=== PATIENT | female | born 1955 | race Caucasian/White ===

== ENCOUNTER → 2017-02-21 | Outpatient (CLI) | payer OTHER ==
--- NOTE | 2017-02-21 09:50 | RAD ---
HISTORY: Left upper quadrant pain Study: Acute abdominal series Comparison: None Findings: Lung volumes are reduced with bronchovascular crowding. There is cardiomegaly noted and suggestion o f central pulmonary vascular congestion. There is atelectasis at the lung bases. Flat plate and upright evaluation of the abdomen demonstrates a normal bowel gas pattern. No gross f ree intraperitoneal air. No pathological soft tissue mass or calcification can be observed. The bon y structures are grossly intact. Cholecystectomy clips are noted. IMPRESSION: 1. No evidence of acute abdominal pathology. 2. Low lung volumes with possible mild vascular congestion, correlate clinically. Reported By:
== END ==
LOC: RAD 08:52
PROVIDERS: ATTEND Obstetrics & Gynecology Obstetrics
DX: R10.12 Left upper quadrant pain (principal)
CPT/HCPCS: 74022

== ENCOUNTER → 2017-10-17 | Outpatient (CLI) | payer OTHER ==
--- NOTE | 2017-10-17 20:21 | CT ---
HISTORY: Left lower quadrant pain with rebound tenderness. Study: CT abdomen and pelvis without contrast Comparison: None. Technique: Multiple axial images of the abdomen and pelvis were obtained from the lung bases to the pubic symphy sis without the administration of IV contrast. Dose reduction techniques including Automated Exposur e Control (AEC) and adjustment of mA and kV were utilized. Findings: Study limited secondary to lack of IV contrast. The visualized portions of the lung bases are unremarkable. Bilateral nonobstructing nephroliths, the largest measuring 4 mm within the left interpolar kidney and 3 mm within the right interpolar kidney . The liver, spleen, pancreas, and adrenal glands are unremarkable in their CT appearance. The gallb ladder is surgically absent. Marked soft tissue stranding is seen about multiple sigmoid diverticulu m with associated mucosal thickening and non loculated free fluid. No obvious free air to suggest per foration or focal fluid collection to suggest abscess formation. Remaining large and small bowel appe ar normal. The uterus and ovaries appear surgically absent. The bladder appears normal. Small fat con taining umbilical hernia. Degenerative changes of the spine. No aggressive osseous lesions. Vascular calcifications without evidence of aneurysmal dilatation. IMPRESSION: Acute sigmoid diverticulitis without evidence to suggest perforation or abscess formatio n. Recommend direct visualization to exclude neoplasm after patient has recovered from current episod e. Reported By:
== END ==
LOC: RAD 17:16
PROVIDERS: ATTEND Obstetrics & Gynecology Obstetrics
DX: R10.32 Left lower quadrant pain (principal); R10.824 Left lower quadrant rebound abdominal tenderness; K57.30 Diverticulosis of large intestine without perforation or abscess without bleeding
CPT/HCPCS: 74176

== ENCOUNTER 2017-10-24 08:07 | Inpatient (IN) | payer OTHER ==
[2017-10-24 08:16] VITALS: BMI 44.8
--- NOTE | 2017-10-24 08:30 | DR.GENAD ---
HPI - PCP Primary Care Physician: [email or web address] - HPI Comment HPI Comment: WORSE TODAY. NO FEVER. ON MED FOR DIVERTICULITIS BUT PAIN INCREASING. - Complaint/Symptoms Chief Complaint Doctors Comments: LEFT LOWER ABDOMINAL PAIN TIMES 2 WEEKS. Chief Complaint:: "pain in left side, for two weeks from diverticulitis" - Nurses notes reviewed Nurses Notes Review: Yes - Source History Provided: Patient - Mode of Arrival Mode of Arrival: Ambulatory - Timing Onset of Chief Complaint: 10/14/17 Came on: Suddenly - Duration Duration: Constant Duration: Days - Severity Severity: Moderate PMH - PMH Past Medical History: Yes Past Medical History: Diabetes, Hypertension Past Surgical History: Yes Surgical History: Cholecystectomy, Hysterectomy - Family History History of Family Medical Conditions: Yes Family Medical History: Diabetes Mellitus, [place], Hypertension - Social History Does patient currently use any type of tobacco product: No Have you used tobacco products in the last 12 months: No Type of Tobacco Use: None Does any household member use tobacco: No Alcohol Use: None Do you use any recreational Drugs:: No Lives With: Family Lives Where: Home - infectious screening In the last 2 months have you had wt loss of >10#?: NO Have you had fever, night sweats or hemotysis?: No Have you traveled outside the country in the last 6 months?: No Isolation: Standard ROS - Review of Systems Constitutional: Weakness, Fatigue Eyes: No Symptoms Reported. negative: Eye Pain, Discharge ENTM: No Symptoms Reported. negative: Ear Pain, Nose Discharge, Nose Congestion , Throat Pain Respiratoy: negative: Productive Cough, Non-Productive Cough, Short of Breath, Wheezing, Hemoptysis Cardiovascular: No Symptoms Reported. negative: Chest Pain Gastrointestinal/Abdominal: Abdominal Pain, Nausea Genitourinary: No Symptoms Reported, Pain. negative: Bleeding Neurological: Weakness, Dizziness. negative: Headache Musculoskeletal: Muscle Pain Integumentary: No Symptoms Reported Hematologic/Lymphatic: No Symptoms Reported Endocrine: No Symptoms Reported All Other Systems: Reviewed and Negative PE - Vital Signs Vitals: Temperature 97.6 F Pulse Rate 100 Respiratory Rate 18 Blood Pressure 183/78 O2 Sat by Pulse Oximetry 97 - General Limitations: No Limitations General Appearance: Alert - Head Head Exam: Normal Inspection - Eyes Eye exam: Normal Appearance - ENT ENT Exam: Normal External Ear Exam External Ear Exam: Normal External Inspection TM/Canal Exam: Bilateral Normal Mouth Exam: Normal Inspection Throat Exam: Normal Inspection - Neck Neck Exam: Trachea Midline - Chest Chest Inspection: Symmetric Chest Wall Rise - Respiratory Respiratory Exam: Normal Lung Sounds Bilat Respiratory Exam: Bilateral Clear to Auscultation - Cardiovascular Cardiovascular Exam: Regular Rate, Normal Rhythm, Normal Heart Sounds - Abdominal Exam Abdominal Exam: Normal Bowel Sounds, Soft, Tenderness Abdominal Tenderness: LUQ, LLQ, Moderate - Extremities Extremities Exam: Normal Inspection - Back Back Exam: Normal Inspection - Neurologic Neurological Exam: Alert, Oriented X3 - Psychiatric Psychiatric Exam: Normal Affect, Normal Mood - Skin Skin Exam: Normal Color MDM - Additional Information Additional Information Obtained From: Family - Differential Diagnosis Differential Diagnosis: ABDOMINAL PAIN, ACUTE DIVERTICULITIS Course - Treatment Treatment: SEE ORDERS. - Consultation Consultation Comments: SEEN IN ED BY DR. VELIZ AND ADMITTED TO HOSPITAL BY HIM. - Education/Counseling Education/Counseling: Patient, Education Educated On: Diagnosis ROR - Labs Reviewed Laboratory Results Reviewed?: Yes Result Diagrams: 10/26/17 03:00 10/26/17 03:00 Laboratory: WBC 12.2 X10^3/uL (3.6-10.0) H 10/24/17 08:55 RBC 4.46 X10^6/uL (3.5-5.4) 10/24/17 08:55 Hgb 13.2 g/dL (12.0-16.0) 10/24/17 08:55 Hct 38.6 % (36.0-47.0) 10/24/17 08:55 MCV 86.5 fL (80.0-100.0) 10/24/17 08:55 MCH 29.6 pg (27.0-34.0) 10/24/17 08:55 MCHC 34.2 g/dL (33.0-35.0) 10/24/17 08:55 RDW 14.9 % (11.6-16.5) 10/24/17 08:55 Plt Count 260 X10^3/uL (150.0-450.0) 10/24/17 08:55 MPV 7.8 fL (7.4-11.0) 10/24/17 08:55 Neut % 73.7 % (42.0-75.0) 10/24/17 08:55 Lymph % 18.6 % (21.0-51.0) L 10/24/17 08:55 [place] % 5.8 % (0.0-13.0) 10/24/17 08:55 Eos % 1.2 % (0.9-2.9) 10/24/17 08:55 Baso % 0.7 % (0.2-1.0) 10/24/17 08:55 Neut # 9.0 x10^3/uL (2.2-4.8) H 10/24/17 08:55 Lymph # 2.3 X10^3/uL (1.3-2.9) 10/24/17 08:55 [place] # 0.7 x10^3/uL (0.3-0.8) 10/24/17 08:55 Eos # 0.1 x10^3/uL (0.0-0.2) 10/24/17 08:55 Baso # 0.1 X10^3/uL (0.0-0.1) 10/24/17 08:55 Absolute Nucleated RBC 0.0 /100WBC 10/24/17 08:55 Sodium 139 mmol/L (136-145) 10/24/17 08:55 Corrected Sodium 140 mmol/L (136-145) 10/24/17 08:55 Potassium 4.3 mmol/L (3.5-5.1) 10/24/17 08:55 Chloride 100 mmol/L (98-107) 10/24/17 08:55 Carbon Dioxide 28.8 mmol/L (21-32) 10/24/17 08:55 BUN 22 mg/dL (7-18) H 10/24/17 08:55 Creatinine 0.90 mg/dL (0.55-1.02) 10/24/17 08:55 Est GFR (MDRD) Af Amer > 60 (>60) 10/24/17 08:55 Est GFR (MDRD) Non-Af > 60 (>60) 10/24/17 08:55 Glucose 141 mg/dL (65-99) H 10/24/17 08:55 Calcium 9.6 mg/dL (8.5-10.1) 10/24/17 08:55 Corrected Calcium TNP 10/24/17 08:55 Total Bilirubin 0.30 mg/dL (0.2-1.0) 10/24/17 08:55 AST 14 Units/L (15-37) L 10/24/17 08:55 ALT 23 Units/L (12-78) 10/24/17 08:55 Alkaline Phosphatase 73 Units/L (46-116) 10/24/17 08:55 Total Protein 8.1 g/dL (6.4-8.2) 10/24/17 08:55 Albumin 3.5 g/dL (3.4-5.0) 10/24/17 08:55 Globulin 4.6 g/dL (2.5-4.5) H 10/24/17 08:55 Albumin/Globulin Ratio 0.8 Ratio (1.1-2.1) L 10/24/17 08:55 Amylase 39 Units/L (25-115) 10/24/17 08:55 Lipase 167 Units/L (73-393) 10/24/17 08:55 Specimen Type Clean catch urine 10/24/17 08:42 Urine Color Yellow (YELLOW) 10/24/17 08:42 Urine Appearance Clear (CLEAR) 10/24/17 08:42 Urine pH 5.0 (5.0 - 8.0) 10/24/17 08:42 Ur Specific [place] 1.015 (1.000-1.030) 10/24/17 08:42 Urine Protein Negative (NEGATIVE) 10/24/17 08:42 Urine Glucose (UA) Negative (NEGATIVE) 10/24/17 08:42 Urine Ketones Negative (NEGATIVE) 10/24/17 08:42 Urine Occult Blood 1+ (NEGATIVE) 10/24/17 08:42 Urine Nitrite Positive (NEGATIVE) 10/24/17 08:42 Urine Bilirubin Negative (NEGATIVE) 10/24/17 08:42 Urine Urobilinogen Normal (NORMAL) 10/24/17 08:42 Ur Leukocyte Esterase Negative (NEGATIVE) 10/24/17 08:42 Urine RBC Rare /HPF (NEGATIVE) 10/24/17 08:42 Urine WBC 0 - 3 /HPF (NEGATIVE) 10/24/17 08:42 Ur Squamous Epith Cells Many /HPF (NEGATIVE) 10/24/17 08:42 Amorphous Sediment Trace /HPF (NEGATIVE) 10/24/17 08:42 Urine Bacteria 1+ /HPF (NEGATIVE) 10/24/17 08:42 Ur Culture Indicated? No/not indicated 10/24/17 08:42 - XRAY XRAY Interpreted by: Radiologist XRAY Findings: REPORT DISCUSS WITH PATIENT FOR ACUTE ABDOMINAL SERIES. - Diagnosis Discharge Problem: Abdominal pain not caused by trauma, Diverticulitis - Discharge Plan Disposition: ADMITTED INPATIENT Condition: Stable - Follow ups/Referrals - Instructions
[2017-10-24] MEDS ORDERED: MORPHINE SULFATE INJ 4 MG IVP ONE (08:40)
[2017-10-24] MEDS ORDERED: ZOFRAN INJ 4 MG VIAL IVP ONE (08:42)
[2017-10-24] MEDS ORDERED: PEPCID 20 MG IV PREMIX* 20 MG/50 ML BAG IV ONE ×2 (08:42→08:47)
[2017-10-24] MEDS ORDERED: NS 1000 ML 1,000 ML ONE (08:47)
[2017-10-24] MEDS ORDERED: ZOFRAN INJ 4 MG VIAL ONE (08:47)
[2017-10-24] MEDS ORDERED: MORPHINE SULFATE INJ 4 MG ONE (08:48)
[2017-10-24] MEDS ORDERED: NS 1000 ML 1,000 ML IV SCH (09:00)
[2017-10-24 09:02] LABS: BASOPHILS # (AUTO) 0.1 X10^3/uL (0.0-0.1); BASOPHILS % (AUTO) 0.7 % (0.2-1.0); EOSINOPHILS # (AUTO) 0.1 x10^3/uL (0.0-0.2); EOSINOPHILS % (AUTO) 1.2 % (0.9-2.9); HEMATOCRIT 38.6 % (36.0-47.0); HEMOGLOBIN 13.2 g/dL (12.0-16.0); LYMPHOCYTES # (AUTO) 2.3 X10^3/uL (1.3-2.9); LYMPHOCYTES % (AUTO) 18.6 % (21.0-51.0); MEAN CORPUSCULAR HEMOGLOBIN 29.6 pg (27.0-34.0); MEAN CORPUSCULAR HGB CONC 34.2 g/dL (33.0-35.0); MEAN CORPUSCULAR VOLUME 86.5 fL (80.0-100.0); MEAN PLATELET VOLUME 7.8 fL (7.4-11.0); MONOCYTES # (AUTO) 0.7 x10^3/uL (0.3-0.8); MONOCYTES % (AUTO) 5.8 % (0.0-13.0); NEUTROPHILS % (AUTO) 73.7 % (42.0-75.0); PLATELET COUNT 260 X10^3/uL (150.0-450.0); RED BLOOD COUNT 4.46 X10^6/uL (3.5-5.4); RED CELL DISTRIBUTION WIDTH 14.9 % (11.6-16.5); WHITE BLOOD COUNT 12.2 X10^3/uL (3.6-10.0)
[2017-10-24 09:12] LABS: ALANINE AMINOTRANSFERASE 23 Units/L (12-78); ALBUMIN 3.5 g/dL (3.4-5.0); ALKALINE PHOSPHATASE 73 Units/L (46-116); AMYLASE 39 Units/L (25-115); ASPARTATE AMINO TRANSFERASE 14 Units/L (15-37); BLOOD UREA NITROGEN 22 mg/dL (7-18); CALCIUM 9.6 mg/dL (8.5-10.1); CARBON DIOXIDE 28.8 mmol/L (21-32); CHLORIDE 100 mmol/L (98-107); COR NA(FOR HYPERGLY) 140 mmol/L (136-145); LIPASE 167 Units/L (73-393); SODIUM 139 mmol/L (136-145); TOTAL PROTEIN 8.1 g/dL (6.4-8.2); eGFR BLACK RACES > 60 (>60); eGFR NON BLACK RACES > 60 (>60)
[2017-10-24 09:44] LABS: BILIRUBIN,URINE NEGATIVE (NEGATIVE); BLOOD/HEMOGLOBIN,URINE 1+ (NEGATIVE); GLUCOSE, URINE NEGATIVE (NEGATIVE); KETONES,URINE NEGATIVE (NEGATIVE); LEUKOCYTE ESTERASE ,URINE NEGATIVE (NEGATIVE); NITRITES,URINE POSITIVE (NEGATIVE); PROTEIN,URINE NEGATIVE (NEGATIVE); UROBILINOGEN,URINE NORMAL (NORMAL)
[2017-10-24 09:46] LABS: APPEARANCE,URINE CLEAR (CLEAR); COLOR,URINE YELLOW (YELLOW)
[2017-10-24 09:54] LABS: AMORPHOUS SEDIMENT,UR TRACE /HPF (NEGATIVE); BACTERIA,URINE 1+ /HPF (NEGATIVE); RBC,URINE RARE /HPF (NEGATIVE); SQUAMOUS EPITHELIAL CELL,UR MANY /HPF (NEGATIVE)
--- NOTE | 2017-10-24 10:15 | RAD ---
Examination: Abdomen with PA chest History: Abdominal pain, diverticulitis. PA chest: Normal transverse heart diameter with clear lungs and pleural spaces. Abdomen: Supine and upright views demonstrate no significant distention, pneumatosis or free air. The re are surgical clips in the right upper quadrant. Residual contrast material is noted within the lef t colon diverticula. There is no evidence for free fluid, mass formation or other acute process. Impression: No acute chest or abdominal process identified. Postsurgical findings. Evidence for diver ticulosis of the colon. Reported By:
[2017-10-24] MEDS: LR 1000 ML IV 1,000 ML IV SCH ×3 (12:58→22:02)
[2017-10-24] MEDS ORDERED: DILAUDID INJ IVP PRN (13:00)
[2017-10-24] MEDS ORDERED: PATIENT'S HOME MEDICATION (Metformin Hcl [Metformin Hcl] 1,000 MG) PO SCH (13:45)
[2017-10-24] MEDS: NORCO 5/325 MG TAB PO PRN ×2 (13:50→18:35)
[2017-10-24] MEDS ORDERED: ACTOS PO SCH (14:00)
[2017-10-24] MEDS ORDERED: AMBIEN PO PRN (15:04)
[2017-10-24] MEDS ORDERED: ZOFRAN INJ 4 MG VIAL IVP PRN (15:07)
[2017-10-24] MEDS ORDERED: NS 50 ML IV 50 ML IV ONE (15:15)
[2017-10-24] MEDS: ZOSYN VIAL 3.375 GM 3.375 GM in NS 100 ML IV 100 ML IV SCH ×2 (15:40→22:05)
[2017-10-24] MEDS: SYNTHROID 50 mcg TAB PO SCH (15:40)
--- NOTE | 2017-10-24 18:18 | CT ---
CT abdomen and pelvis with contrast Indication: Left lower quadrant abdominal pain Technique: Helical CT images of the abdomen and pelvis were obtained with IV contrast. Reformatted im ages in the coronal and sagittal planes were also generated for review. Comparison: 10/17/2017 Findings: Lung bases are clear. Degenerative changes throughout the spine are noted. No aggressive os seous lesions are identified. The gallbladder surgically absent. The liver, spleen, pancreas and adrenals are unremarkable. Small n onobstructing bilateral renal stones are again noted. There is diffuse diverticulosis of the descending and sigmoid colon. There is mild mural thickening a nd pericolonic stranding of the proximal descending colon, compatible with acute diverticulitis. Ther e is minimal persistent pericolonic stranding about the proximal sigmoid colon, which appears overall improved since prior exam. No associated abscess or perforation seen. The remaining GI tract is norm al. There is mild calcification of the aortoiliac system without aneurysm. The urinary bladder is normal. The patient is post hysterectomy. No free air, free fluid or lymphadenopathy is identified. Impression: Acute uncomplicated diverticulitis of the proximal descending colon. Persistent but improved pericolonic stranding about the proximal sigmoid colon, compatible with mild residual diverticulitis. Nonobstructing bilateral nephrolithiasis and additional incidental findings, as above. Reported By:
[2017-10-25] MEDS: NORCO 5/325 MG TAB PO PRN ×2 (04:24→19:35)
[2017-10-25 04:45] LABS: BASOPHILS % (AUTO) 0.6 % (0.2-1.0); EOSINOPHILS # (AUTO) 0.2 x10^3/uL (0.0-0.2); EOSINOPHILS % (AUTO) 3.5 % (0.9-2.9); HEMATOCRIT 35.2 % (36.0-47.0); HEMOGLOBIN 11.9 g/dL (12.0-16.0); LYMPHOCYTES # (AUTO) 1.8 X10^3/uL (1.3-2.9); LYMPHOCYTES % (AUTO) 33.6 % (21.0-51.0); MEAN CORPUSCULAR HEMOGLOBIN 29.5 pg (27.0-34.0); MEAN CORPUSCULAR HGB CONC 33.7 g/dL (33.0-35.0); MEAN CORPUSCULAR VOLUME 87.5 fL (80.0-100.0); MEAN PLATELET VOLUME 8.3 fL (7.4-11.0); MONOCYTES # (AUTO) 0.5 x10^3/uL (0.3-0.8); MONOCYTES % (AUTO) 8.6 % (0.0-13.0); NEUTROPHILS # (AUTO) 2.9 x10^3/uL (2.2-4.8); NEUTROPHILS % (AUTO) 53.7 % (42.0-75.0); PLATELET COUNT 195 X10^3/uL (150.0-450.0); RED BLOOD COUNT 4.02 X10^6/uL (3.5-5.4); RED CELL DISTRIBUTION WIDTH 15.1 % (11.6-16.5); WHITE BLOOD COUNT 5.4 X10^3/uL (3.6-10.0)
[2017-10-25 04:57] LABS: ALANINE AMINOTRANSFERASE 20 Units/L (12-78); ALKALINE PHOSPHATASE 61 Units/L (46-116); ASPARTATE AMINO TRANSFERASE 13 Units/L (15-37); BLOOD UREA NITROGEN 14 mg/dL (7-18); CALCIUM 9.1 mg/dL (8.5-10.1); CARBON DIOXIDE 30.3 mmol/L (21-32); CHLORIDE 103 mmol/L (98-107); COR CA(FOR HYPOALB) 9.9 mg/dL (8.5-10.1); COR NA(FOR HYPERGLY) 140 mmol/L (136-145); CREATININE 0.87 mg/dL (0.55-1.02); SODIUM 140 mmol/L (136-145); TOTAL PROTEIN 6.9 g/dL (6.4-8.2); eGFR BLACK RACES > 60 (>60); eGFR NON BLACK RACES > 60 (>60)
[2017-10-25] MEDS: ZOSYN VIAL 3.375 GM 3.375 GM in NS 100 ML IV 100 ML IV SCH ×3 (05:19→21:46)
[2017-10-25] MEDS: LR 1000 ML IV 1,000 ML IV SCH ×3 (05:19→19:35)
[2017-10-25] MEDS ORDERED: GLUCOPHAGE PO SCH (09:00)
[2017-10-25] MEDS: ACTOS PO SCH (09:25)
[2017-10-25] MEDS: ZESTRIL TAB 10 MG PO SCH (09:25)
[2017-10-25] MEDS: SYNTHROID 50 mcg TAB PO SCH (16:38)
--- NOTE | 2017-10-25 23:31 | PCM.PROG ---
Progress Note - Progress Note for Day of Date: 10/25/17 - Subjective Subjective: WAS ADMITTED FOR ACUTE DIVERTICULITIS. SHE IS A PATIENT OF . TODAY, SHE IS ALERT AND ORIENTED, LYING IN BED ON MORNING ROUNDS. SHE CONTINUES WITH COMPLAINTS OF DIFFUSE ABDOMINAL PAIN, BUT REPORTS SLIGHT IMPROVEMENT IN SYMPTOMS SINCE ADMISSION. ON EXAMINATION, HEART IS REGULAR IN RATE AND RHYTHM. LUNG SOUNDS ARE CLEAR THROUGHOUT. ABDOMEN IS ROUND, SOFT, AND NOTED WITH MILD, DIFFUSE TENDERNESS ON PALPATION. THERE IS GOOD MOVEMENT NOTED IN ALL EXTREMITIES. VITAL SIGNS THIS MORNING ARE STABLE. SHE REMAINS HEMODYNAMICALLY STABLE. SHE IS CURRENTLY RECEIVING ZOSYN 3.375 IV Q8H. WE WILL CONTINUE WITH CURRENT PLAN OF CARE TODAY. SHE WILL NEED A REPEAT SCAN AT THE BEGINNNG OF THE WEEK TO REASSESS. WE RECOMMENDED THAT PATIENT FOLLOW UP WITH A COLORECTAL SURGEON AFTER DISCHARGE FOR COMPLAINTS OF REPEATED DIVERTICULITIS. WE PLAN TO FOLLOW UP WITH AM LABS AND CONTINUE TO MONITOR PATIENT. - Past Medical Family Social History Past Med/Fam/Surg Hx: No changes since H&P Allergies: Allergies No Known Drug Allergies Allergy (Verified 10/24/17 08:08) - Review of Systems ROS: No change since H&P - Vital Signs and I&O's Vital Signs: Temperature 98.5 F Pulse Rate [Left Brachial] 78 Pulse Rate [Right Brachial] 74 Pulse Rate 100 Respiratory Rate 20 Blood Pressure [Left Arm] 144/71 Blood Pressure 183/78 O2 Sat by Pulse Oximetry 96 Intake and Output: Intake & Output 10/23/17 10/24/17 10/25/17 10/26/17 11:59 11:59 11:59 11:59 Intake Total 1495 2114 Output Total 3 Balance 1492 2114 - Physical Exam Oriented: Normal. negative: Time, Person, Place, Not Oriented, Unable to test, Other Eyes: Normal. negative: Blurred Vision, Diplopia, Discharge, Pain, Redness, Photophobia, Other Ear: Normal. negative: Right, Left, Swelling, Ecchymosis, Hemotypanum, Abrasion , Laceration Nose: Normal. negative: Injected, Discharge, Blood, Other Throat: Normal. negative: Tonsillar Hypertrophy, Red, Exudate, Dry, Other Respiratory: Normal Cardiovascular: Normal. negative: Tachycardia, Bradycardia, Irregular, S3, S4, Systolic, Diastolic, Murmur, Edema, Other : Normal. negative: Dysuria, Hematuria, Frequency, Discharge, Testicular Pain , Bleeding, , Other Auscultation: Bowel Sounds: Normal Palpation: Normal Tenderness: Diffuse, Mild. negative: Rebound, Guarding, Rigidity Skin: Normal. negative: Decreased Turgur, Rash, Papular, Macular, Maculopapular , Vesicular, Pustular, Petechial, Red, Tender, Hot, Diaphoresis, Wound, Bruising , Ecchymosis, Other Musculoskeletal: Normal Psychiatric: Normal. negative: Anxiety, Depression, Agitation, Other Mood Description: Calm Affect: Normal Speech Pattern: Clear, Appropriate - Laboratory and Diagnostics Result Diagrams: 10/25/17 03:05 10/25/17 03:05 Labs: Laboratory WBC 5.4 X10^3/uL (3.6-10.0) 10/25/17 03:05 RBC 4.02 X10^6/uL (3.5-5.4) 10/25/17 03:05 Hgb 11.9 g/dL (12.0-16.0) L 10/25/17 03:05 Hct 35.2 % (36.0-47.0) L 10/25/17 03:05 MCV 87.5 fL (80.0-100.0) 10/25/17 03:05 MCH 29.5 pg (27.0-34.0) 10/25/17 03:05 MCHC 33.7 g/dL (33.0-35.0) 10/25/17 03:05 RDW 15.1 % (11.6-16.5) 10/25/17 03:05 Plt Count 195 X10^3/uL (150.0-450.0) 10/25/17 03:05 MPV 8.3 fL (7.4-11.0) 10/25/17 03:05 Neut % 53.7 % (42.0-75.0) 10/25/17 03:05 Lymph % 33.6 % (21.0-51.0) 10/25/17 03:05 [place] % 8.6 % (0.0-13.0) 10/25/17 03:05 Eos % 3.5 % (0.9-2.9) H 10/25/17 03:05 Baso % 0.6 % (0.2-1.0) 10/25/17 03:05 Neut # 2.9 x10^3/uL (2.2-4.8) 10/25/17 03:05 Lymph # 1.8 X10^3/uL (1.3-2.9) 10/25/17 03:05 [place] # 0.5 x10^3/uL (0.3-0.8) 10/25/17 03:05 Eos # 0.2 x10^3/uL (0.0-0.2) 10/25/17 03:05 Baso # 0.0 X10^3/uL (0.0-0.1) 10/25/17 03:05 Absolute Nucleated RBC 0.0 /100WBC 10/25/17 03:05 Sodium 140 mmol/L (136-145) 10/25/17 03:05 Corrected Sodium 140 mmol/L (136-145) 10/25/17 03:05 Potassium 4.4 mmol/L (3.5-5.1) 10/25/17 03:05 Chloride 103 mmol/L (98-107) 10/25/17 03:05 Carbon Dioxide 30.3 mmol/L (21-32) 10/25/17 03:05 BUN 14 mg/dL (7-18) 10/25/17 03:05 Creatinine 0.87 mg/dL (0.55-1.02) 10/25/17 03:05 Est GFR (MDRD) Af Amer > 60 (>60) 10/25/17 03:05 Est GFR (MDRD) Non-Af > 60 (>60) 10/25/17 03:05 Glucose 113 mg/dL (65-99) H 10/25/17 03:05 POC Glucose (mg/dL) 149 mg/dL (65-99) H 10/25/17 21:43 Calcium 9.1 mg/dL (8.5-10.1) 10/25/17 03:05 Corrected Calcium 9.9 mg/dL (8.5-10.1) 10/25/17 03:05 Total Bilirubin 0.30 mg/dL (0.2-1.0) 10/25/17 03:05 AST 13 Units/L (15-37) L 10/25/17 03:05 ALT 20 Units/L (12-78) 10/25/17 03:05 Alkaline Phosphatase 61 Units/L (46-116) 10/25/17 03:05 Total Protein 6.9 g/dL (6.4-8.2) 10/25/17 03:05 Albumin 3.0 g/dL (3.4-5.0) L 10/25/17 03:05 Globulin 3.9 g/dL (2.5-4.5) 10/25/17 03:05 Albumin/Globulin Ratio 0.8 Ratio (1.1-2.1) L 10/25/17 03:05 Amylase 39 Units/L (25-115) 10/24/17 08:55 Lipase 167 Units/L (73-393) 10/24/17 08:55 Specimen Type Clean catch urine 10/24/17 08:42 Urine Color Yellow (YELLOW) 10/24/17 08:42 Urine Appearance Clear (CLEAR) 10/24/17 08:42 Urine pH 5.0 (5.0 - 8.0) 10/24/17 08:42 Ur Specific [place] 1.015 (1.000-1.030) 10/24/17 08:42 Urine Protein Negative (NEGATIVE) 10/24/17 08:42 Urine Glucose (UA) Negative (NEGATIVE) 10/24/17 08:42 Urine Ketones Negative (NEGATIVE) 10/24/17 08:42 Urine Occult Blood 1+ (NEGATIVE) 10/24/17 08:42 Urine Nitrite Positive (NEGATIVE) 10/24/17 08:42 Urine Bilirubin Negative (NEGATIVE) 10/24/17 08:42 Urine Urobilinogen Normal (NORMAL) 10/24/17 08:42 Ur Leukocyte Esterase Negative (NEGATIVE) 10/24/17 08:42 Urine RBC Rare /HPF (NEGATIVE) 10/24/17 08:42 Urine WBC 0 - 3 /HPF (NEGATIVE) 10/24/17 08:42 Ur Squamous Epith Cells Many /HPF (NEGATIVE) 10/24/17 08:42 Amorphous Sediment Trace /HPF (NEGATIVE) 10/24/17 08:42 Urine Bacteria 1+ /HPF (NEGATIVE) 10/24/17 08:42 Ur Culture Indicated? No/not indicated 10/24/17 08:42 - Plan (1) Diverticulitis Status: Acute Plan: CONTINUE ZOSYN 3.375 IV Q8H, CONTINUE TO MONITOR
[2017-10-26] MEDS: LR 1000 ML IV 1,000 ML IV SCH ×3 (03:49→21:40)
[2017-10-26] MEDS: NORCO 5/325 MG TAB PO PRN ×2 (03:50→09:12)
[2017-10-26 04:38] LABS: BASOPHILS % (AUTO) 0.9 % (0.2-1.0); EOSINOPHILS # (AUTO) 0.2 x10^3/uL (0.0-0.2); EOSINOPHILS % (AUTO) 4.4 % (0.9-2.9); HEMATOCRIT 33.4 % (36.0-47.0); HEMOGLOBIN 11.3 g/dL (12.0-16.0); LYMPHOCYTES # (AUTO) 1.8 X10^3/uL (1.3-2.9); LYMPHOCYTES % (AUTO) 41.2 % (21.0-51.0); MEAN CORPUSCULAR HEMOGLOBIN 29.4 pg (27.0-34.0); MEAN CORPUSCULAR HGB CONC 33.7 g/dL (33.0-35.0); MEAN CORPUSCULAR VOLUME 87.3 fL (80.0-100.0); MEAN PLATELET VOLUME 8.5 fL (7.4-11.0); MONOCYTES # (AUTO) 0.3 x10^3/uL (0.3-0.8); MONOCYTES % (AUTO) 7.6 % (0.0-13.0); NEUTROPHILS % (AUTO) 45.9 % (42.0-75.0); PLATELET COUNT 205 X10^3/uL (150.0-450.0); RED BLOOD COUNT 3.83 X10^6/uL (3.5-5.4); WHITE BLOOD COUNT 4.3 X10^3/uL (3.6-10.0)
[2017-10-26 04:59] LABS: ALANINE AMINOTRANSFERASE 16 Units/L (12-78); ALBUMIN 2.8 g/dL (3.4-5.0); ALKALINE PHOSPHATASE 56 Units/L (46-116); ASPARTATE AMINO TRANSFERASE 12 Units/L (15-37); BLOOD UREA NITROGEN 10 mg/dL (7-18); CALCIUM 9.1 mg/dL (8.5-10.1); CARBON DIOXIDE 30.5 mmol/L (21-32); CHLORIDE 105 mmol/L (98-107); COR CA(FOR HYPOALB) 10.1 mg/dL (8.5-10.1); COR NA(FOR HYPERGLY) 142 mmol/L (136-145); CREATININE 0.74 mg/dL (0.55-1.02); SODIUM 142 mmol/L (136-145); TOTAL PROTEIN 6.5 g/dL (6.4-8.2); eGFR BLACK RACES > 60 (>60); eGFR NON BLACK RACES > 60 (>60)
[2017-10-26] MEDS: ZOSYN VIAL 3.375 GM 3.375 GM in NS 100 ML IV 100 ML IV SCH ×3 (05:23→21:40)
[2017-10-26] MEDS: ZESTRIL TAB 10 MG PO SCH (09:12)
[2017-10-26] MEDS: ACTOS PO SCH (09:12)
[2017-10-26] MEDS: TORADOL 30 MG VIAL IVP SCH ×3 (11:36→21:40)
[2017-10-26] MEDS: SYNTHROID 50 mcg TAB PO SCH (16:03)
--- NOTE | 2017-10-26 23:38 | PCM.PROG ---
Progress Note - Progress Note for Day of Date: 10/26/17 - Subjective Subjective: WAS ADMITTED FOR ACUTE DIVERTICULITIS. SHE IS A PATIENT OF . TODAY, SHE IS ALERT AND ORIENTED, LYING IN BED ON MORNING ROUNDS. SHE CONTINUES WITH MILD ABDOMINAL PAIN, BUT REPORTS CONTINUES IMPROVEMENT. SHE IS ALSO NOTED WITH COMPLAINTS OF RIGHT KNEE PAIN TODAY. ON EXAMINATION, HEART IS REGULAR IN RATE AND RHYTHM. LUNG SOUNDS ARE CLEAR THROUGHOUT. ABDOMEN IS ROUND, SOFT, AND NOTED WITH MILD, DIFFUSE TENDERNESS ON PALPATION. THERE IS GOOD MOVEMENT NOTED IN ALL EXTREMITIES. VITAL SIGNS THIS MORNING ARE STABLE. SHE REMAINS HEMODYNAMICALLY STABLE. SHE IS CURRENTLY RECEIVING ZOSYN 3.375 IV Q8H. WE WILL CONTINUE WITH CURRENT PLAN OF CARE TODAY. WE WILL ORDER A REPEAT ABD/PELVIS CT WITH CONTRAST FOR TOMORROW MORNING. WE WILL ALSO START TORODOL 30MG IV Q6H [place]. OTHERWISE, WE WILL CONTINUE WITH CURRENT PLAN OF CARE. WE PLAN TO FOLLOW UP WITH AM LABS AND CONTINUE TO MONITOR PATIENT. - Past Medical Family Social History Past Med/Fam/Surg Hx: No changes since H&P Allergies: Allergies No Known Drug Allergies Allergy (Verified 10/24/17 08:08) - Review of Systems ROS: No change since H&P - Vital Signs and I&O's Vital Signs: Temperature 98.5 F Pulse Rate [Left Brachial] 85 Pulse Rate [Right Brachial] 87 Pulse Rate 100 Respiratory Rate 20 Blood Pressure [Left Arm] 118/47 Blood Pressure 183/78 O2 Sat by Pulse Oximetry 98 Intake and Output: Intake & Output 10/24/17 10/25/17 10/26/17 10/27/17 11:59 11:59 11:59 11:59 Intake Total 1495 3274 2260 Output Total 3 Balance 1492 3274 2260 - Physical Exam Oriented: Normal. negative: Time, Person, Place, Not Oriented, Unable to test, Other Eyes: Normal. negative: Blurred Vision, Diplopia, Discharge, Pain, Redness, Photophobia, Other Ear: Normal. negative: Right, Left, Swelling, Ecchymosis, Hemotypanum, Abrasion , Laceration Nose: Normal. negative: Injected, Discharge, Blood, Other Throat: Normal. negative: Tonsillar Hypertrophy, Red, Exudate, Dry, Other Respiratory: Normal Cardiovascular: Normal. negative: Tachycardia, Bradycardia, Irregular, S3, S4, Systolic, Diastolic, Murmur, Edema, Other : Normal. negative: Dysuria, Hematuria, Frequency, Discharge, Testicular Pain , Bleeding, , Other Auscultation: Bowel Sounds: Normal Palpation: Normal Tenderness: Diffuse, Mild. negative: Rebound, Guarding, Rigidity Skin: Normal. negative: Decreased Turgur, Rash, Papular, Macular, Maculopapular , Vesicular, Pustular, Petechial, Red, Tender, Hot, Diaphoresis, Wound, Bruising , Ecchymosis, Other Musculoskeletal: Normal Psychiatric: Normal. negative: Anxiety, Depression, Agitation, Other Mood Description: Calm Affect: Normal Speech Pattern: Clear, Appropriate - Laboratory and Diagnostics Result Diagrams: 10/26/17 03:00 10/26/17 03:00 Labs: Laboratory WBC 4.3 X10^3/uL (3.6-10.0) 10/26/17 03:00 RBC 3.83 X10^6/uL (3.5-5.4) 10/26/17 03:00 Hgb 11.3 g/dL (12.0-16.0) L 10/26/17 03:00 Hct 33.4 % (36.0-47.0) L 10/26/17 03:00 MCV 87.3 fL (80.0-100.0) 10/26/17 03:00 MCH 29.4 pg (27.0-34.0) 10/26/17 03:00 MCHC 33.7 g/dL (33.0-35.0) 10/26/17 03:00 RDW 15.0 % (11.6-16.5) 10/26/17 03:00 Plt Count 205 X10^3/uL (150.0-450.0) 10/26/17 03:00 MPV 8.5 fL (7.4-11.0) 10/26/17 03:00 Neut % 45.9 % (42.0-75.0) 10/26/17 03:00 Lymph % 41.2 % (21.0-51.0) 10/26/17 03:00 [place] % 7.6 % (0.0-13.0) 10/26/17 03:00 Eos % 4.4 % (0.9-2.9) H 10/26/17 03:00 Baso % 0.9 % (0.2-1.0) 10/26/17 03:00 Neut # 2.0 x10^3/uL (2.2-4.8) L 10/26/17 03:00 Lymph # 1.8 X10^3/uL (1.3-2.9) 10/26/17 03:00 [place] # 0.3 x10^3/uL (0.3-0.8) 10/26/17 03:00 Eos # 0.2 x10^3/uL (0.0-0.2) 10/26/17 03:00 Baso # 0.0 X10^3/uL (0.0-0.1) 10/26/17 03:00 Absolute Nucleated RBC 0.1 /100WBC 10/26/17 03:00 Sodium 142 mmol/L (136-145) 10/26/17 03:00 Corrected Sodium 142 mmol/L (136-145) 10/26/17 03:00 Potassium 4.0 mmol/L (3.5-5.1) 10/26/17 03:00 Chloride 105 mmol/L (98-107) 10/26/17 03:00 Carbon Dioxide 30.5 mmol/L (21-32) 10/26/17 03:00 BUN 10 mg/dL (7-18) 10/26/17 03:00 Creatinine 0.74 mg/dL (0.55-1.02) 10/26/17 03:00 Est GFR (MDRD) Af Amer > 60 (>60) 10/26/17 03:00 Est GFR (MDRD) Non-Af > 60 (>60) 10/26/17 03:00 Glucose 117 mg/dL (65-99) H 10/26/17 03:00 POC Glucose (mg/dL) 210 mg/dL (65-99) H 10/26/17 20:24 Calcium 9.1 mg/dL (8.5-10.1) 10/26/17 03:00 Corrected Calcium 10.1 mg/dL (8.5-10.1) 10/26/17 03:00 Total Bilirubin 0.10 mg/dL (0.2-1.0) L 10/26/17 03:00 AST 12 Units/L (15-37) L 10/26/17 03:00 ALT 16 Units/L (12-78) 10/26/17 03:00 Alkaline Phosphatase 56 Units/L (46-116) 10/26/17 03:00 Total Protein 6.5 g/dL (6.4-8.2) 10/26/17 03:00 Albumin 2.8 g/dL (3.4-5.0) L 10/26/17 03:00 Globulin 3.7 g/dL (2.5-4.5) 10/26/17 03:00 Albumin/Globulin Ratio 0.8 Ratio (1.1-2.1) L 10/26/17 03:00 Amylase 39 Units/L (25-115) 10/24/17 08:55 Lipase 167 Units/L (73-393) 10/24/17 08:55 Specimen Type Clean catch urine 10/24/17 08:42 Urine Color Yellow (YELLOW) 10/24/17 08:42 Urine Appearance Clear (CLEAR) 10/24/17 08:42 Urine pH 5.0 (5.0 - 8.0) 10/24/17 08:42 Ur Specific [place] 1.015 (1.000-1.030) 10/24/17 08:42 Urine Protein Negative (NEGATIVE) 10/24/17 08:42 Urine Glucose (UA) Negative (NEGATIVE) 10/24/17 08:42 Urine Ketones Negative (NEGATIVE) 10/24/17 08:42 Urine Occult Blood 1+ (NEGATIVE) 10/24/17 08:42 Urine Nitrite Positive (NEGATIVE) 10/24/17 08:42 Urine Bilirubin Negative (NEGATIVE) 10/24/17 08:42 Urine Urobilinogen Normal (NORMAL) 10/24/17 08:42 Ur Leukocyte Esterase Negative (NEGATIVE) 10/24/17 08:42 Urine RBC Rare /HPF (NEGATIVE) 10/24/17 08:42 Urine WBC 0 - 3 /HPF (NEGATIVE) 10/24/17 08:42 Ur Squamous Epith Cells Many /HPF (NEGATIVE) 10/24/17 08:42 Amorphous Sediment Trace /HPF (NEGATIVE) 10/24/17 08:42 Urine Bacteria 1+ /HPF (NEGATIVE) 10/24/17 08:42 Ur Culture Indicated? No/not indicated 10/24/17 08:42 - Plan (1) Diverticulitis Status: Acute Plan: CT ABD/PELVIS WITH CONTRAST IN AM, CONTINUE ZOSYN 3.375 IV Q8H, CONTINUE TO MONITOR
[2017-10-27] MEDS: LR 1000 ML IV 1,000 ML IV SCH (05:13)
[2017-10-27] MEDS: ZOSYN VIAL 3.375 GM 3.375 GM in NS 100 ML IV 100 ML IV SCH (05:13)
[2017-10-27] MEDS: TORADOL 30 MG VIAL IVP SCH ×2 (05:13→09:59)
[2017-10-27] MEDS ORDERED: GLUCOPHAGE PO SCH (09:00)
[2017-10-27] MEDS: ACTOS PO SCH (09:59)
[2017-10-27] MEDS: ZESTRIL TAB 10 MG PO SCH (09:59)
--- NOTE | 2017-10-27 13:51 | CT ---
CT abdomen and pelvis with contrast Indication: Left-sided abdominal pain Technique: Helical CT images of the abdomen and pelvis were obtained with IV contrast. Reformatted im ages in the coronal and sagittal planes were also generated for review. Comparison: 10/24/2017, 10/17/2017 Findings: Lung bases are clear. No aggressive osseous lesions are identified. The gallbladder is surgically absent. The liver, spleen, pancreas and adrenals are unremarkable. Smal l nonobstructing bilateral renal stones are unchanged. Diffuse diverticulosis of the descending and sigmoid colon is again noted. There is minimal persisten t pericolonic stranding about the proximal descending colon, improved since the prior exam. Mild mura l thickening and inflammation about the proximal sigmoid colon appears unchanged. No abscess, perfora tion or bowel obstruction is otherwise identified. There is mild calcification of the aortoiliac system without aneurysm. The urinary bladder is normal. The uterus is surgically absent. There is no free air, free fluid or lymphadenopathy. Impression: Persistent but stable mild residual diverticulitis of the proximal sigmoid colon. If not recently per formed, colonoscopy following resolution of symptoms is again recommended to exclude underlying mass. Near complete resolution of diverticulitis of the proximal descending colon. Nonobstructing bilateral nephrolithiasis. Reported By:
[2017-10-27 14:16] VITALS: BP 152/65
== END 2017-10-27 14:50 | disposition home or self-care (01) | DRG 392 ==
LOC: ER 08:17 → OBSVTOIN 10:48 → MED/SURG 10:48
PROVIDERS: ADMIT Obstetrics & Gynecology Obstetrics; ATTEND Obstetrics & Gynecology Obstetrics
DX: K57.92 Diverticulitis of intestine, part unspecified, without perforation or abscess without bleeding (principal); N39.0 Urinary tract infection, site not specified; R10.84 Generalized abdominal pain; R10.11 Right upper quadrant pain; I10 Essential (primary) hypertension; E11.65 Type 2 diabetes mellitus with hyperglycemia; E03.8 Other specified hypothyroidism
CPT/HCPCS: 36415; 74022; 74177; 80053; 81001; 82150; 83690; 85025; 96365; 96367; 96374; 99283; A4222; S0028; J1885; J2270; J2405; J2543; J7120